=== PATIENT | female | born 1985 | race Caucasian/White ===

== ENCOUNTER 2021-10-26 05:28 | Inpatient (IN) | payer OTHER ==
[~2021-10-26] VITALS: Ht 165.1 cm; Wt 73.5 kg
[~2021-10-26 05:28] MED LIST: CARAFATE1 GM PO; COLACE100 MG PO; IBUPROFEN600 MG PO; NORCO 5-325 TA1 EACH PO; ONE-TABLET-DAI1 EACH PO
[2021-10-26] MEDS ORDERED: FLINTSTONES1 EAC1 PO (06:55)
[2021-10-26] MEDS ORDERED: PRENATABS FA T1 EACH PO (06:55)
[2021-10-26] MEDS ORDERED: PROBIOTIC1 EAC1 PO (06:56)
[2021-10-26 07:13] LABS: HEMOGLOBIN 12.8 gm/dl (12.3-15.3); RED BLOOD COUNT 3.79 M/UL (4.00-5.10)
[2021-10-26 07:34] LABS: BUN/CREATININE RATIO 29 (0-10)
[2021-10-27 06:20] LABS: HEMOGLOBIN 10.3 gm/dl (12.3-15.3)
[2021-10-27] MEDS ORDERED: HYDROCODONE-AC1 EACH PO (06:47)
[2021-10-27] MEDS ORDERED: IBUPROFEN600 MG PO (06:47)
[2021-10-27] MEDS ORDERED: DOCUSATE SODIU250 MG PO (06:47)
== END 2021-10-29 10:57 | disposition home or self-care (01) | DRG 787 ==
LOC: GENOP 05:28 → OB 06:07
PROVIDERS: ADMIT Obstetrics & Gynecology
PROC: 10D00Z1 Extraction of Products of Conception, Low, Open Approach (ICD-10-PCS; principal; 2021-10-26 10:42)
DX: O36.5930 Maternal care for other known or suspected poor fetal growth, third trimester, not applicable or unspecified (principal); O99.354 Diseases of the nervous system complicating childbirth; O99.344 Other mental disorders complicating childbirth; Z20.822 Contact with and (suspected) exposure to COVID-19; F41.9 Anxiety disorder, unspecified; O99.62 Diseases of the digestive system complicating childbirth; K59.00 Constipation, unspecified; O32.1XX0 Maternal care for breech presentation, not applicable or unspecified; G47.00 Insomnia, unspecified; G43.909 Migraine, unspecified, not intractable, without status migrainosus; O24.420 Gestational diabetes mellitus in childbirth, diet controlled; Z37.0 Single live birth; Z90.89 Acquired absence of other organs; Z3A.38 38 weeks gestation of pregnancy
CPT/HCPCS: 36415; 80053; 81001; 82800; 85014; 85018; 85025; C9113; J0690; J1170; J1885; J2250; J2274; J2370; J2405; J2590; J3010; J7030; J7120; U0002